=== PATIENT | female | born 1945 | race Caucasian/White ===

== ENCOUNTER 2017-11-05 08:48 | Day surgery (SDC) | payer MEDICARE ==
[~2017-11-05 08:48] MED LIST: ACETAMINOPHEN 1,000 MG/100 ML BTL IV ONE; CELECOXIB 100 MG CAPSULE PO ONE; FAMOTIDINE 20MG TABLET PO ONE; MECLIZINE 25 MG TABLET PO ONE; METOCLOPRAMIDE 10 MG TABLET PO ONE; VANCOMYCIN HCL 1,000 MG in DEXTROSE 5 % IN WATER 250 ML IVPB ONE
[2017-11-05] MEDS ORDERED: BUPIVACAINE LIPOSOME 266MG/20ML VIAL IV ONE (08:49)
[2017-11-05] MEDS ORDERED: *PACU ONLY* KETAMINE HCL 10 MG/ML (20ML) VIAL IV ONE (08:49)
[2017-11-05] MEDS ORDERED: FENTANYL PF 100MCG/2ML VIAL IV ONE (08:49)
[2017-11-05] MEDS ORDERED: MIDAZOLAM HCL 2MG/2ML VIAL IV ONE (08:49)
[2017-11-05] MEDS ORDERED: KETOROLAC 30 MG/ML VIAL IVP ONE (08:49)
[2017-11-05] MEDS ORDERED: PROPOFOL 10 MG/ML VIAL IV ONE (08:49)
[2017-11-05] MEDS ORDERED: BUPIVACAINE 0.5% W/EPI MPF 30 ML VIAL IVP ONE (08:49)
[2017-11-05] MEDS ORDERED: VANCOMYCIN HCL 1 GM VIAL IVPB ONE (08:49)
[2017-11-05] MEDS ORDERED: LIDOCAINE 2% MDV (20MG/ML) 20ML VIAL IV ONE (08:49)
[2017-11-05] MEDS ORDERED: TRANEXAMIC ACID 1,000 MG/10 ML ML IV ONE ×2 (08:49)
[2017-11-05] MEDS ORDERED: BISACODYL 10 MG SUPP RC PRN (11:40)
[2017-11-05] MEDS ORDERED: METOCLOPRAMIDE 10 MG TABLET PO PRN (11:40)
[2017-11-05] MEDS ORDERED: ACETAMINOPHEN W/ CODEINE 300MG/30MG TABLET PO PRN ×2 (11:40)
[2017-11-05] MEDS ORDERED: NALOXONE 0.4 MG/1 ML VIAL IVP PRN (11:40)
[2017-11-05] MEDS ORDERED: ACETAMINOPHEN W/ CODEINE 300MG/60MG TABLET PO PRN ×2 (11:40)
[2017-11-05] MEDS ORDERED: HYDROCODONE/APAP 5/325MG TABLET PO PRN ×2 (11:40)
[2017-11-05] MEDS ORDERED: ONDANSETRON 4 MG ODT TABLET SL PRN (11:40)
[2017-11-05] MEDS ORDERED: HYDROCODONE/APAP 7.5/325MG TABLET PO PRN ×2 (11:40)
[2017-11-05] MEDS ORDERED: DIPHENHYDRAMINE HCL 25 MG CAPSULE PO PRN (11:40)
[2017-11-05] MEDS ORDERED: PROMETHAZINE HCL 25 MG TABLET PO PRN (11:40)
[2017-11-05] MEDS ORDERED: AL HYDROX/MAG HYDROX 30ML UD PO PRN (11:40)
[2017-11-05] MEDS ORDERED: KETOROLAC 30 MG/ML VIAL IVP PRN ×2 (11:40)
[2017-11-05] MEDS ORDERED: MAGNESIUM HYDROXIDE 30 ML UDC PO PRN (11:40)
[2017-11-05] MEDS ORDERED: ACETAMINOPHEN 325 MG TAB PO PRN (11:40)
[2017-11-05] MEDS ORDERED: TRAMADOL HCL 50 MG TABLET PO PRN ×2 (11:40)
[2017-11-05 12:04] LABS: ABO GROUP A; ANTIBODY SCREEN NEGATIVE (NEGATIVE); RH TYPE POSITIVE
[2017-11-05] MEDS ORDERED: DEXTROSE 5 % AND 0.9 % NACL 1,000 ML IV PRN (13:45)
[2017-11-05] MEDS ORDERED: VANCOMYCIN HCL 500 MG in 0.9 % SODIUM CHLORIDE 100ML 100 ML IVPB SCH (14:00)
--- NOTE | 2017-11-05 17:08 | Rehab Evaluation ---
Patient Information - Patient Information Diagnosis: R kneeOA Ordered Treatment: PT Evaluate and Treat Status: Initial Evaluation Surgery: Yes (TKA) Date of Surgery: 11/05/17 Past Medical/Surgical Hx: PAST MEDICAL/SURGICAL HISTORY Past Surgical History D and C c scopes PMH - Respiratory Hx Respiratory Disorders No PMH - Cardiovascular Hx Cardiovascular Disorders Yes Hx Hypertension Yes: on meds "white coat syndrome" Hx Palpitations Yes: in past with certain blood pressure med. unsure which one Exercise Tolerance Good PMH - Neuro Hx Neurological Disorders Yes Hx Neuropathy Yes: feet and hands PMH - GI Hx Gastrointestinal Disorders Yes Hx Gastroesophageal Reflux Yes: occassionally releived with tums PMH - Hx Genitourinary Disorders No Hx Age of Menopause 48 PMH - Endocrine Hx Endocrine Disorders Yes Hx Diabetes Yes: dx'd 10 yrs ago Hx of NIDDM Yes: on Metformin Comment: blood sugars 100-115 A1C around 6 PMH - Musculoskeletal Hx Musculoskeletal Disorders Yes Hx Arthritis Yes: knees and hands PMH - Psych Hx Psychiatric Problems No PMH - Hematology/Oncology Hx Hematology/Oncology No Disorders Premorbid Status: Detail (The patient was independent with all mobility prior to surgery.) Social History: Detail (The patient lives in a 2 story home with spouse with bedroom, kitchen and bathroom on the main floor. The patient has 2 steps with wide base (walker able to fit walker on the step). The patient's bathroom is equipped with a walk in shower with a built in seat and hand held shower head and a standard toilet seat, with a high riser toilet seat. The patient has her own wheeled walker.) Precautions: [place] - Time With Patient Total Time Spent With Patient (Min): 30 Treatment Procedures: Detail (Initial evaluation, gait training, HEP.) Subjective Information - Subjective Information Per Patient (The patient had no complaints of pain.) Objective Data - Mental Status Patient Orientation: Oriented x3 - Visual Perception Appears within normal limits for therapeutic activities - ROM Not within normal limits (The patient's R knee AROM was not formally measured and is limited s/p surgery. All other LE AROM is WNL.) - Strength/Tone Not within normal limits (The patient's L LE strength is generally 5/5. R LE strength was not tested secondary to s/p surgery but is functional ie: patient completed a SLR.) - Bed Mobility Independent (The patient was independent with supine to and from sit transfer and scooting up in bed.) - Transfers Independent (Independent sit to and from stand transfer.) - Balance Balance Sitting: Good Balance Standing: Good - Sensation Intact - Gait Detail (The patient ambulated with wheeled walker a distance of 80 feet x1 with supervision for safety only. The patient's gait pattern is characterized by decreased knee flexion bilaterally. The patient ambulated on 3 steps with supervision for safety only with one railing and folded walker.) Therapy Assessment - Therapy Assessment Detail (The patient was independent with bed mobility, transfers and ambulation. Supervision for safety is recommended when ambulating on stairs. The patient's observed ambulation on stairs. The patient has met all inpatient PT goals. The patient will receive home PT.) Patient Education - Patient Education Teaching Topic: Exercise/Activity (The patient completed TKA exercises which included: ankle pumps, SLR, gluteal sets, hamstring and quad sets, heelslides seated and supine.) Response: Return Demonstration Teaching Method: Demonstration Teaching Recipient: Patient Barriers To Learning: None Problem List - Problem List Physical Therapy Problem List: Detail (Decreased R knee AROM and strength as to be expected following surgery.) Goals - Goals Physical Therapy Goals: All inpatient PT goals have been met. Prognosis - Prognosis Good Plan - Plan Physical Therapy Plan: Patient discharged from inpatient PT and is to receive Home PT.
--- NOTE | 2017-11-05 17:38 | Rehab Evaluation ---
Patient Information - Patient Information Diagnosis: R kneeOA Ordered Treatment: OT Evaluate and Treat Status: Initial Evaluation Surgery: Yes (TKA) Date of Surgery: 11/05/17 Past Medical/Surgical Hx: PAST MEDICAL/SURGICAL HISTORY Past Surgical History D and C c scopes PMH - Respiratory Hx Respiratory Disorders No PMH - Cardiovascular Hx Cardiovascular Disorders Yes Hx Hypertension Yes: on meds "white coat syndrome" Hx Palpitations Yes: in past with certain blood pressure med. unsure which one Exercise Tolerance Good PMH - Neuro Hx Neurological Disorders Yes Hx Neuropathy Yes: feet and hands PMH - GI Hx Gastrointestinal Disorders Yes Hx Gastroesophageal Reflux Yes: occassionally releived with tums PMH - Hx Genitourinary Disorders No Hx Age of Menopause 48 PMH - Endocrine Hx Endocrine Disorders Yes Hx Diabetes Yes: dx'd 10 yrs ago Hx of NIDDM Yes: on Metformin Comment: blood sugars 100-115 A1C around 6 PMH - Musculoskeletal Hx Musculoskeletal Disorders Yes Hx Arthritis Yes: knees and hands PMH - Psych Hx Psychiatric Problems No PMH - Hematology/Oncology Hx Hematology/Oncology No Disorders Premorbid Status: Detail (The patient was independent with all mobility prior to surgery. Pt. was Ind. with all I/ADL's prior to sx, including self-care, meal prep, housework, and driving.) Social History: Detail (The patient lives in a 2 story home with spouse with bedroom, kitchen and bathroom on the main floor. The patient has 2 steps with wide base (walker able to fit) in the garage entry with no railings. Pt's bathroom has a walk-in shower with built in seat, HH shower head, and toilet riser with grab bars. Pt's will be available to assist PRN. Both pt. and her are retired.) Precautions: [place] - Time With Patient Total Time Spent With Patient (Min): 30 Objective Data - Pain Pain Present: No (Pt. stated no pain, nausea, or dizziness presently.) - Mental Status Patient Orientation: Oriented x3 - Visual Perception Appears within normal limits for therapeutic activities - ROM Within normal limits (BUE) - Strength/Tone Within normal limits (LUE MMT shd flex and abd 4/5, biceps, triceps, and all RUE 4+/5) - Coordination Appears within normal limits for therapeutic activities - Bed Mobility Independent - Transfers Independent (Ind sit<>stand EOB to walker and toilet t/f.) - Balance Balance Sitting: Good Balance Standing: Fair - Sensation Intact (BUE light touch intact fingertips) - ADL's/IADL's Detail (Pt. was Ind. total body dressing seated EOB [facility] gown and socks, and don t-shirt, elastic waist pants, and slip on shoes. Pt. was Ind. with toileting (standard height toilet), including clothing management with use of grab bar and walker for support. Educ. was provided in adaptive dressing techniques and use of internal salesperson. Pt. stated she may obtain a internal salesperson to increase ease of tasks, but was able to safely perform tasks without use of it at this time.) Therapy Assessment - Therapy Assessment Detail (Pt. does not require in-pt. OT services at this time. Pt. has a positive support system, with assistance if needed, and was able to perform self -care skills Ind. Pt. demo. good understanding of adaptive dressing techniques and use of AE if needed.) Patient Education - Patient Education Teaching Topic: Equipment Use Response: Verbalize Understanding Teaching Method: Discussion, Demonstration Teaching Recipient: Patient, Significant Other () Barriers To Learning: None Prognosis - Prognosis Good Plan - Plan Occupational Therapy Plan: D/C from in-pt. OT services. Educ. was provided to call the rehab dept. if Q's/concerns arise upon arriving home.
[2017-11-05] MEDS ORDERED: DOCUSATE SODIUM 100 MG CAPSULE PO SCH (22:00)
--- NOTE | 2017-11-06 16:12 | Operative Note ---
DATE OF SURGERY: 11/05/2017 PREOPERATIVE DIAGNOSIS: END-STAGE RIGHT KNEE ARTHROSIS. POSTOPERATIVE DIAGNOSIS: END-STAGE RIGHT KNEE ARTHROSIS. OPERATION: RIGHT TOTAL KNEE ARTHROPLASTY. SURGEON: BRIANNA COX MD ANESTHESIA: SPINAL. GAME DEVELOPER: SO ROLAND. COMPLICATIONS: NONE. BLOOD LOSS: MINIMAL. TOURNIQUET TIME: 60 MINUTES. OPERATIVE FINDINGS: Severe [id number] medial compartment arthrosis. COMPONENTS PLACED: 2 grams of Vancomycin cement [employer] Journey II total knee arthroplasty system. A size 7 Oxinium femoral component, size 6 tibial baseplate, 9 mm thick tibial poly insert, and 35 mm cemented patellar component. INDICATION FOR OPERATION: This is a 71-year-old female who has had persistent pain and swelling to her knee for several years. Failed nonoperative treatment and is scheduled for total knee arthroplasty. I explained the risks, benefits in detail for diagnosis and procedures including but not limited to infection, nerve injury, vessel injury, pain, numbness, tingling in her knee, periprosthetic fracture, need for resection, arthroplasty should components become infected or loosen, nerve injury, vessel injury, or blood clot, and need for further procedures including fraying, coagulation to prevent blood clots risks associated with these medications. All of her questions were answered and her course was outlined and she agreed to proceed. PROCEDURE: The patient was brought to the OR and placed in the supine position for arthroscopic surgery. General endotracheal anesthesia was induced and her right lower extremity and knee prepped and draped in sterile fashion and her right knee was prepped with ChloraPrep, and draped. Intraoperative time-out was performed. The leg was exsanguinated with an Esmarch. The knee was flexed and tourniquet inflated to 250 mmHg pressure. The skin and subcutaneous was dissected down. Medial and lateral skin flaps remained. Incised the capsule medially around the medial border of patella to the tibial tubercle. Incised the vastus medialis in line with its fibers in a mid vastus approach. Everted the patella. Partially resected the retropatellar fat pad. Elevated the capsule subperiosteally medially and had good exposure of the knee. Flexed the knee. Resected the remnant of the ACL, drilled the intercondylar drill hole with a 6 degree cutting block, aligned the distal femoral condyle, then pinned it in the +2 mm position. We cut the distal femoral condyle and then placed the sizing jig on the distal femoral condyle and sized it to be a size 7. Through the previously placed pinholes, we placed the size 7, 5-in-1 cutting jig. We dialed in the anterior cuts so it came out flush without notching. We cut that and it was good cut and then we pinned it in place and cut for the remainder chamfer cuts in the usual fashion. Next, we placed a size 7 component, centered it, pinned it, and removed osteophytes off the periphery, inserted a femoral resection collet, and reamed down and box osteotomed out the cruciate bone block. Next, attention was turned to the tibia. Exposed the tibia and placed the spikes and external alignment jig in the intertubercular notch two fingerbreadths distally off the anterior tibial cortex, referenced for a 7 mm cut off the higher lateral plateau. There, we pinned it in placed two anterior/ posterior pins. Next, rechecked the alignment with a drop varun and cross-pinned to complete fixation then cut the tibia through the cutting jig. Next, we removed osteophytes off the posterior femoral condyles. Checked the flexion and extension gaps. She had symmetric flexion and extension gaps with a 9 mm thick poly insert and this allowed for 2-3 mm of varus valgus laxity in flexion and extension. Overall, alignment cuts in extension was in anatomic valgus orientation with alignment varun centered on the hip joint and ankle joint area. Next, took the knee in flexion. Sized the tibial baseplate to a size 6 and replaced all trial components. Again, set the rotation of the tibial baseplate in good extension using the alignment varun centered on the hip joint and ankle joint. Marked with electrocautery mukherjee on the anterior tibial cortex off the laser mukherjee on the tibial baseplate. Next, we measured the patella to be 23 mm. Set the cutting jig at 14 mm to allow for a 9 mm thick poly insert and cut the patella. Remeasured, it was then the same thickness, 14. We then chamfered off the lateral patellar facet, sized to be 35 medialized as much as possible, and drilled the three peg holes. We then mixed cement, placed the trial of the patellar component, check range of motion and had full extension and flexion at 140-150 degrees, again, symmetric flexion and extension gaps. Next, we copiously irrigated bony surfaces with pulse lavage and antibiotic solution and flexed the knee. Centered the tibial baseplate off the previously placed electrocautery mukherjee, pinned it in place, and reamed out keel punch and keel hole. We then placed a bone plug in the femoral canal hole. We then changed gloves and gowns and clean sheet again. Copiously irrigated bony surface with pulse lavage and antibiotic solution, pre-coated both surfaces, impacted down the tibial component then the femoral component, clamped down the patellar component, and held the knee in extension until the cement hardened. While the cement hardened, we removed excess cement off the edge of the components, removed the trial tibial component, and injected the capsule, deep layers, superficial layers, with 1 to 2 cm deep by 1 cm apart of multiple sticks of 0.5% Marcaine with Epinephrine, 2 grams Tranexamic Acid and Exparel mixture. Periosteum, mediolateral, subcutaneous, vas medialis, patellar tendon, and quad tendon area. Next, distracted the knee with a bone hook and sponge and impacted it down and inserted the real tibial poly insert verifying it was interlocked medially and laterally. Final range of motion was the same. We irrigated copiously and closed the capsule in flexion using a running #2 Quill suture. Irrigated again. Closed the skin deep with 2-0 Vicryl, tincoben, and Zipline was applied. Sterile dressing applied and LUZ wrap. The patient tolerated the procedure well. No intraoperative complications. All sponge, needle, and blade counts correct. Recovery Room stable, neurovascularly intact. Will be discharged as an outpatient to [facility]. She will have [facility] Nurse today to meet her at her house. She will follow- up in two weeks. cc: Dr. Navid Bradley JOB NUMBER: [id number] MTDD
== END 2017-11-05 18:25 | disposition home health service (06) ==
LOC: SUR 08:48 → MEDSURG 13:49 → SUR 18:25
PROVIDERS: ATTEND Orthopaedic Surgery
DX: M17.11 Unilateral primary osteoarthritis, right knee (principal); I10 Essential (primary) hypertension; E78.00 Pure hypercholesterolemia, unspecified; E11.9 Type 2 diabetes mellitus without complications; Z79.84 Long term (current) use of oral hypoglycemic drugs
CPT/HCPCS: 27447; 01402; 36416; 82948; 86900; 86901; 86850; J1885; J3370; J3010; C9290; J3490; J7060

== ENCOUNTER 2018-03-04 06:01 | Day surgery (SDC) | payer MEDICARE ==
[2018-03-04] MEDS ORDERED: BUPIVACAINE 0.5% W/EPI MPF 30 ML VIAL IVP ONE ×2 (06:02)
[2018-03-04] MEDS ORDERED: MIDAZOLAM HCL 2MG/2ML VIAL IV ONE (06:02)
[2018-03-04] MEDS ORDERED: BUPIVACAINE LIPOSOME 266MG/20ML VIAL IV ONE (06:02)
[2018-03-04] MEDS ORDERED: VANCOMYCIN HCL 1 GM VIAL IVPB ONE ×2 (06:02)
[2018-03-04] MEDS ORDERED: KETOROLAC 30 MG/ML VIAL IVP ONE (06:02)
[2018-03-04] MEDS ORDERED: EPHEDRINE SULFATE 50 MG/ML ML IV ONE (06:02)
[2018-03-04] MEDS ORDERED: PROPOFOL 10 MG/ML VIAL IV ONE (06:02)
[2018-03-04] MEDS ORDERED: TRANEXAMIC ACID 1,000 MG/10 ML ML IV ONE ×2 (06:02)
[2018-03-04] MEDS ORDERED: ONDANSETRON HCL IV 4 MG/2 ML VIAL IVP ONE (06:02)
[2018-03-04 07:28] LABS: ABO GROUP A; RH TYPE POSITIVE
[2018-03-04 07:29] LABS: ANTIBODY SCREEN NEGATIVE (NEGATIVE)
[2018-03-04] MEDS ORDERED: NALOXONE 0.4 MG/1 ML VIAL IVP PRN (08:09)
[2018-03-04] MEDS ORDERED: MAGNESIUM HYDROXIDE 30 ML UDC PO PRN (08:09)
[2018-03-04] MEDS ORDERED: AL HYDROX/MAG HYDROX 30ML UD PO PRN (08:09)
[2018-03-04] MEDS ORDERED: DIPHENHYDRAMINE HCL 25 MG CAPSULE PO PRN (08:09)
[2018-03-04] MEDS ORDERED: HYDROCODONE/APAP 7.5/325MG TABLET PO PRN ×2 (08:09)
[2018-03-04] MEDS ORDERED: METOCLOPRAMIDE 10 MG TABLET PO PRN (08:09)
[2018-03-04] MEDS ORDERED: PROMETHAZINE HCL 25 MG TABLET PO PRN (08:09)
[2018-03-04] MEDS ORDERED: TRAMADOL HCL 50 MG TABLET PO PRN ×2 (08:09)
[2018-03-04] MEDS ORDERED: HYDROCODONE/APAP 5/325MG TABLET PO PRN ×2 (08:09)
[2018-03-04] MEDS ORDERED: ACETAMINOPHEN 325 MG TAB PO PRN (08:09)
[2018-03-04] MEDS ORDERED: DEXTROSE 5 % AND 0.9 % NACL 1,000 ML IV PRN (08:09)
[2018-03-04] MEDS ORDERED: BISACODYL 10 MG SUPP RC PRN (08:09)
[2018-03-04] MEDS ORDERED: KETOROLAC 30 MG/ML VIAL IVP PRN ×2 (08:09)
[2018-03-04] MEDS ORDERED: ONDANSETRON 4 MG ODT TABLET SL PRN (08:09)
[2018-03-04] MEDS ORDERED: ACETAMINOPHEN W/ CODEINE 300MG/60MG TABLET PO PRN ×2 (08:09)
[2018-03-04] MEDS ORDERED: ACETAMINOPHEN W/ CODEINE 300MG/30MG TABLET PO PRN ×2 (08:09)
[2018-03-04] MEDS ORDERED: DOCUSATE SODIUM 100 MG CAPSULE PO SCH (10:00)
[2018-03-04] MEDS ORDERED: VANCOMYCIN HCL 500 MG in 0.9 % SODIUM CHLORIDE 100ML 100 ML IVPB SCH (10:00)
--- NOTE | 2018-03-04 13:51 | Rehab Evaluation ---
Patient Information - Patient Information Diagnosis: L knee OA Ordered Treatment: PT Evaluate and Treat Status: Initial Evaluation Surgery: Yes (TKA L) Date of Surgery: 03/04/18 Past Medical/Surgical Hx: PAST MEDICAL/SURGICAL HISTORY Past Surgical History RTKA 11-05-17 D and C c scopes PMH - Respiratory Hx Respiratory Disorders No PMH - Cardiovascular Hx Cardiovascular Disorders Yes Hx Hypertension Yes: on meds "white coat syndrome" Hx Palpitations Yes: in past with certain blood pressure med. unsure which one Exercise Tolerance Fair Comment: still uses cane when doing a lot of walking PMH - Neuro Hx Neurological Disorders Yes Hx Neuropathy Yes: feet and hands PMH - GI Hx Gastrointestinal Disorders Yes Hx Gastroesophageal Reflux Yes: occassionally releived with tums PMH - Hx Genitourinary Disorders No Hx Age of Menopause 48 PMH - Endocrine Hx Endocrine Disorders Yes Hx Diabetes Yes: dx'd 10 yrs ago Hx of NIDDM Yes: on Metformin Comment: blood sugars 100-115 A1C around 6 PMH - Musculoskeletal Hx Musculoskeletal Disorders Yes Hx Arthritis Yes: knees and hands PMH - Psych Hx Psychiatric Problems No PMH - Hematology/Oncology Hx Hematology/Oncology No Disorders Premorbid Status: Detail (Prior to surgery the patient) Social History: Detail (The patient lives with spouse in a 2 story house, living on the first level. The patient's home has 1 step a landing and one step at the enterance from the garage. The patient's bathroom is equipped with a walk in shower with grab bars, hand held shower and a shower bench and a toilet with a lift seat with handles. The patient has a two wheeled walker and a standard cane.) Precautions: [place], [place], Other (WBAT on the R LE.) - Time With Patient Total Time Spent With Patient (Min): 20 Treatment Procedures: Detail (Initial Evaluation, gait training) Subjective Information - Subjective Information Per Patient (The patient had no complaints of pain.) Objective Data - Pain Pain Present: No - Mental Status Patient Orientation: Oriented x3 - Visual Perception Appears within normal limits for therapeutic activities - ROM Not within normal limits (The patient's R knee AROM was limited to aprox. 90 degrees of flexion, 0 degrees of extension. L knee AROM was not formally assessed but was limited as to be expected s/p surgery. All other LE AROM was WNL.) - Strength/Tone Not within normal limits (R LE strength was 4/5 throughout hip musculature and knee extensors 4+/5, knee flexors 4/5, ankle musculature was 5/5. The patient's L LE strength was not tested secondary to s/p surgery however is strength was functional ie: patient could complete a SLR.) - Bed Mobility Independent (Independent with supine to and sit with head of bed raised and scooting up in bed.) - Transfers Independent (The patient was independent with sit to and stand.) - Balance Balance Sitting: Good Balance Standing: Good - Gait Detail (The patient ambulated with 2 wheeled walker WBAT on the L LE independently a distance of 108 feet x1. The patient ambulated on 3 stairs with use of one railing and folded walker with supervision for safety.) Therapy Assessment - Therapy Assessment Detail (The patient was independent with bed mobility, transfers, ambulation on levels, with supervision for safety on stairs. was present when patient ambulated on stairs and observed safe technique.The patient has met all inpatient goals and is discharged from inpatient PT. The patient is to receive Home PT.) Patient Education - Patient Education Teaching Topic: Exercise/Activity (The patient completed the following TKA exercises with occasional verbal cues to remember exercises. The patient used proper technique for all the exercises.) Response: Return Demonstration Teaching Method: Demonstration, Handout Teaching Recipient: Patient Barriers To Learning: Age Related Problem List - Problem List Physical Therapy Problem List: Detail (Decreased L knee AROM and L LE strength as to be expected following surgery.) Goals - Goals Physical Therapy Goals: All inpatient PT goals have been met. Prognosis - Prognosis Good Plan - Plan Physical Therapy Plan: The patient has met all inpatient goals. The patient is to receive Home PT services.
--- NOTE | 2018-03-04 14:31 | Rehab Evaluation ---
Patient Information - Patient Information Diagnosis: L knee OA Ordered Treatment: OT Evaluate and Treat Status: Initial Evaluation Surgery: Yes (TKA L) Date of Surgery: 03/04/18 Past Medical/Surgical Hx: PAST MEDICAL/SURGICAL HISTORY Past Surgical History RTKA 11-05-17 D and C c scopes PMH - Respiratory Hx Respiratory Disorders No PMH - Cardiovascular Hx Cardiovascular Disorders Yes Hx Hypertension Yes: on meds "white coat syndrome" Hx Palpitations Yes: in past with certain blood pressure med. unsure which one Exercise Tolerance Fair Comment: still uses cane when doing a lot of walking PMH - Neuro Hx Neurological Disorders Yes Hx Neuropathy Yes: feet and hands PMH - GI Hx Gastrointestinal Disorders Yes Hx Gastroesophageal Reflux Yes: occassionally releived with tums PMH - Hx Genitourinary Disorders No Hx Age of Menopause 48 PMH - Endocrine Hx Endocrine Disorders Yes Hx Diabetes Yes: dx'd 10 yrs ago Hx of NIDDM Yes: on Metformin Comment: blood sugars 100-115 A1C around 6 PMH - Musculoskeletal Hx Musculoskeletal Disorders Yes Hx Arthritis Yes: knees and hands PMH - Psych Hx Psychiatric Problems No PMH - Hematology/Oncology Hx Hematology/Oncology No Disorders Premorbid Status: Detail (Prior to surgery the patient and spouse shared home mgmt, meal prep and laundry.) Social History: Detail (The patient lives with spouse in a 2 story house, living on the first level. The patient's home has 1 step, a landing and one step at the entrance from the garage. The patient's bathroom is equipped with a walk in shower with grab bars, hand held shower and a shower bench and a toilet with an elevated seat with handles. The patient has a two wheeled walker and a standard cane.) Precautions: [place], [place], Other (WBAT on the R LE.) - Time With Patient Total Time Spent With Patient (Min): 35 Treatment Procedures: Detail (OT eval low complexity) Subjective Information - Subjective Information Per Patient Objective Data - Pain Pain Present: Yes (07/25) - Mental Status Patient Orientation: Oriented x3 - Visual Perception Appears within normal limits for therapeutic activities - ROM Within normal limits (Felix UE AROM WNL) - Strength/Tone Within normal limits (Felix UE strength WNL) - Coordination Appears within normal limits for therapeutic activities - Bed Mobility Independent - Transfers Independent (Ind with sit to stand) - Balance Balance Sitting: Good Balance Standing: Good - Sensation Intact - Gait Detail (Pt ambulating in room with 2 wheeled walker Indly.) - ADL's/IADL's Detail (Pt educated and demonstrated learning of modified LE dressing techniques including pants and slip on shoes. Reviewed shower and kitchen modifications and safety, pt verbalized learning.) Therapy Assessment - Therapy Assessment Detail (Pt Ind with LE dressing using modified techniques.) Problem List - Problem List Occupational Therapy Problem List: Detail (No current OT problems identified.) Goals - Goals Occupational Therapy Goals: No current OT goals identified. Prognosis - Prognosis Good Plan - Plan Occupational Therapy Plan: No further IP OT recommended at this time. Thank you for this referral.
--- NOTE | 2018-03-05 13:33 | Operative Note ---
DATE OF SURGERY: 03/04/2018 PREOPERATIVE DIAGNOSIS: END-STAGE LEFT KNEE ARTHROSIS. POSTOPERATIVE DIAGNOSIS: END-STAGE LEFT KNEE ARTHROSIS. OPERATION: LEFT TOTAL KNEE ARTHROPLASTY. SURGEON: BRIANNA COX MD ANESTHESIA: SPINAL. COVERED BUCKLE ASSEMBLER: SO ROLAND. COMPLICATIONS: NONE. BLOOD LOSS: MINIMAL. TOURNIQUET TIME: APPROXIMATELY 70 MINUTES. OPERATIVE FINDINGS: [id number] medial compartment arthrosis. COMPONENTS PLACED: Total [employer] II total knee arthroplasty system. A size 7 Oxinium femoral component, size 6 tibial baseplate, 9 mm thick tibial poly insert, and 35 mm cemented patellar component. INDICATION FOR OPERATION: This is a 72-year-old female well-known to myself. She is status post right knee arthroplasty done a few months ago and now scheduled for the left. She had [id number] arthrosis. I explained the risks, benefits in detail for diagnosis and procedures including but not limited to infection, nerve injury, vessel injury, pain, numbness, tingling in the knee, periprosthetic fracture, need for resection, arthroplasty should components become infected or loosen, nerve injury, vessel injury, or blood clot, and need for anticoagulation to prevent blood clots and risks associated with these medications, and need for further procedures. All of her questions were answered. Rehab course was outlined and she agreed to proceed. PROCEDURE: The patient was brought to the OR and placed in the supine position for arthroscopic surgery. Spinal anesthesia was induced and her left lower extremity and knee prepped and draped in sterile fashion and her left knee was prepped again with ChloraPrep, and draped. Intraoperative time-out was performed. The leg was exsanguinated with an Esmarch. The knee was flexed and tourniquet inflated to 250 mmHg pressure. The skin and subcutaneous was dissected down. Incised the capsule medially around the medial border of patella to the tibial tubercle. Incised the vastus medialis in line with its fibers. Elevated the capsule subperiosteally medially , everted the patella laterally, and partially resected the retropatellar fat pad. Flexed the knee and had [id number] medial compartment arthrosis, drilled the intercondylar drill hole, inserted intramedullary guide varun with 6-degree cutting block, aligned the distal femoral condyle, pinned it in the +2 mm position, and cut the distal femoral condyles. Next, placed the sizing jig into the distal femoral condyles and sized it to be a size 7. Through the previously placed pinholes, I placed the 5-in-1 cutting jig. We dialed in the anterior cuts so it would come out flush without notching. We cut that and it was good flush cut, pinned the cutting jig, and cut for the remainder chamfer cuts in the usual fashion. We placed a size 7 trial component and it fit nicely. Pinned it in place through the resection collet and then reamed down box osteotome with the cruciate bone block. Next, attention was turned to the tibia. Exposed the tibia and seated the spikes in the intertubercular notch two fingerbreadths distally off the anterior tibial cortex, referenced for a 7 mm cut off the higher lateral plateau , Pinned the cutting jig in placed provisionally with two anterior/posterior pins. Next, rechecked the alignment with a drop varun and then cross-pinned the cutting jig to complete its fixation then cut the tibia. Removed osteophytes off the posterior femoral condyles then checked the flexion and extension gaps. Symmetric flexion and extension gaps were found with a 9 mm thick poly insert and 2-3 mm of varus valgus laxity in flexion and extension. Overall, alignment cuts in extension was in anatomic valgus orientation with alignment varun centered on the hip joint and ankle joint area. Next, took the knee in flexion. Sized the tibial baseplate to a size 6 and replaced all trial components. Set the rotation of the tibial baseplate in good extension using the alignment varun centered on the hip joint and ankle joint. Marked with electrocautery mukherjee on the anterior tibial cortex. Attention was turned to the patella. We measured the patella to be 24 mm. Set the cutting jig at 15 mm to allow for a 9 mm thick poly insert and cut the patella and then remeasured right on 15. Chamfered off the lateral patellar facet, size 35, and drilled three peg holes then placed the trial patellar component with mixed cement. Did a trial range of range of motion and the patella tracked nicely handsfree and had full extension and flexion at 150 degrees, again, symmetric flexion and extension gaps. Took the knee in flexion. Seated the tibial baseplate off the previously placed electrocautery mukherjee, pinned it in place, and reamed out keel punch and keel hole. Changed gloves and brought in a clean sheet. Copiously irrigated bony surface with pulse lavage and antibiotic solution, and then impacted down the tibia, placed a bone plug in the femoral canal hole and the drill in the keel punch hole, and them impacted down the tibial component and removed excess cement, in the femoral component removed excess cement and placed the trial tibial poly liner. Held the knee in extension and clamped down the patellar component until the cement hardened and removed excess cement. Took the knee in flexion, distracted the knee with a bone hook and sponge and irrigated it copiously. Injected the posterior capsule and medial lateral periosteum with 0.5% Marcaine with Epi, Exparel, and Tranexamic Acid mixture and then inserted the real tibial poly insert verifying it was interlocked medially and laterally. Final range of motion revealed the same. Irrigated again, injected further superficially and the vastus medialis, quadriceps, patellar tendons as well with our mixture and 0.5% Marcaine with Epi and skin and subcutaneous and closed the capsule with running #2 Quill suture in flexion securely, irrigated, closed the skin with 2-0 Vicryl. ACTICOAT dressing was applied with provisional dressing and will be changed to WALTER dressing prior to discharge as an outpatient today. She will follow-up in two weeks. cc: Dr. Navid Bradley JOB NUMBER: [id number] MTDD
== END 2018-03-04 14:40 | disposition home health service (06) ==
LOC: SUR 06:01 → MEDSURG 10:41 → SUR 14:40
PROVIDERS: ATTEND Orthopaedic Surgery
DX: M17.12 Unilateral primary osteoarthritis, left knee (principal); I10 Essential (primary) hypertension; E11.9 Type 2 diabetes mellitus without complications; E78.00 Pure hypercholesterolemia, unspecified; H40.9 Unspecified glaucoma
CPT/HCPCS: 86850; 86900; 86901; J1885; J2405; J3370; J7060